=== PATIENT | male | born 1965 ===

== ENCOUNTER 2017-02-02 18:30 | Inpatient (IN) | payer BC, OTHER ==
[~2017-02-02] VITALS: Ht 180.3 cm; Wt 96.2 kg
[2017-02-02] MEDS ORDERED: THIAMINE HCL 200 MG/2 ML VIAL IM ONE (21:00)
[2017-02-02] MEDS ORDERED: LOPERAMIDE HCL 2 MG CAPSULE PO PRN ×2 (21:00)
[2017-02-02] MEDS ORDERED: IBUPROFEN 400 MG TABLET PO PRN (21:00)
[2017-02-02] MEDS ORDERED: LORAZEPAM 2 MG/1 ML VIAL IM PRN (21:00)
[2017-02-02] MEDS ORDERED: diphenhydrAMINE 50 MG CAPSULE PO PRN (21:00)
[2017-02-02] MEDS ORDERED: DICYCLOMINE HCL 20 MG TABLET PO PRN (21:00)
[2017-02-02] MEDS ORDERED: MAGNESIUM HYDROXIDE 30 ML LIQUID UDC PO PRN (21:00)
[2017-02-02] MEDS ORDERED: ONDANSETRON ODT 4 MG TAB.RAPDIS SL PRN (21:00)
[2017-02-02] MEDS ORDERED: HYDROXYZINE PAMOATE 25 MG CAPSULE PO PRN (21:00)
[2017-02-02] MEDS ORDERED: MIRALAX 17 GM POWD.PACK PO PRN (21:00)
[2017-02-02] MEDS ORDERED: ACETAMINOPHEN 325 MG TABLET PO PRN (21:00)
[2017-02-02] MEDS ORDERED: ONDANSETRON 4 MG/2 ML VIAL IM PRN (21:00)
[2017-02-02] MEDS ORDERED: MAG HYDROX/AL HYDROX/SIMETH 30 ML LIQUID UDC PO PRN (21:00)
[2017-02-02] MEDS ORDERED: LORAZEPAM 1 MG TABLET PO PRN ×2 (21:00)
[2017-02-02] MEDS ORDERED: CLONIDINE HCL 0.1 MG TABLET PO PRN (21:00)
[2017-02-02 21:26] LABS: *AMPHETAMINE, URINE NEGATIVE (NEGATIVE); *BARBITURATE, URINE NEGATIVE (NEGATIVE); *CANNABINOID, URINE NEGATIVE (NEGATIVE); *COCCAINE, URINE NEGATIVE (NEGATIVE); *OPIATE, URINE NEGATIVE (NEGATIVE); *PHENCYCLIDINE SCREEN,URINE NEGATIVE (NEGATIVE)
[2017-02-02 21:55] VITALS: BP 143/81
[2017-02-02] MEDS ORDERED: LORAZEPAM 1 MG TABLET PO ONE (22:00)
[2017-02-02] MEDS ORDERED: LORAZEPAM 1 MG TABLET ONE (22:05)
[2017-02-02 23:34] LABS: BASOPHILS % (AUTO) 0.7 % (0.0-2.0); EOSINOPHILS % (AUTO) 0.8 % (0.0-7.0); HEMATOCRIT 43.5 % (36.7-47.1); HEMOGLOBIN 14.8 g/dL (12.5-16.3); LYMPHOCYTES % (AUTO) 21.7 % (20.5-51.5); MEAN CORPUSCULAR HEMOGLOBIN 30.6 uug (23.8-33.4); MEAN CORPUSCULAR HGB CONC 34 g/dL (32.5-36.3); MEAN CORPUSCULAR VOLUME 89.8 fL (73.0-96.2); MONOCYTES # (AUTO) 0.4 K/uL (2.0-10.0); MONOCYTES % (AUTO) 7.9 % (0.0-11.0); NEUTROPHILS # (AUTO) 3.2 K/uL (1.8-8.9); NEUTROPHILS % (AUTO) 68.9 % (38.5-71.5); PLATELET COUNT (AUTO) 184 K/uL (152-348); RED BLOOD CELL COUNT(AUTO) 4.84 MIL/uL (4.06-5.63); RED CELL DISTRIBUTION WIDTH 14.4 % (12.1-16.2); WHITE BLOOD COUNT (AUTO) 4.6 K/uL (3.6-10.2)
[2017-02-02 23:47] LABS: ALBUMIN 4.4 g/dL (3.4-5.0); BILIRUBIN,TOTAL 0.3 mg/dL (0.2-1.0); CALCIUM 9.1 mg/dL (8.5-10.1); CREATININE 0.9 mg/dL (0.6-1.3); POTASSIUM 3.4 mmol/L (3.5-5.1); TOTAL PROTEIN, SERUM 8.4 g/dL (6.4-8.2)
[2017-02-02 23:57] LABS: HIV-1 p24 ANTIGEN NON REACTIVE (NONREACTIVE); HIV-1/2 ANTIBODY NON REACTIVE (NONREACTIVE)
[2017-02-02 23:58] LABS: THYROID STIMULATING HORMONE 2.504 mIU/mL (0.358-3.740)
[2017-02-03] VITALS: BP 124/81
[2017-02-03] MEDS ORDERED: LORA-259 PO (02:40)
[2017-02-03 04:00] VITALS: BP 127/86
[2017-02-03] MEDS ORDERED: POTASSIUM CHLORIDE 20 MEQ TAB.PRT.SR PO ONE (06:00)
[2017-02-03] MEDS ORDERED: LORAZEPAM 1 MG TABLET ONE (06:22)
[2017-02-03 08:00] VITALS: BP 133/83
[2017-02-03] MEDS: MULTIVITAMINS,THERAPEUTIC TABLET PO SCH (08:43)
[2017-02-03] MEDS: LORAZEPAM 1 MG TABLET PO SCH ×4 (08:43→20:42)
[2017-02-03] MEDS: FOLIC ACID 1 MG TABLET PO SCH (08:43)
[2017-02-03] MEDS: THIAMINE HCL 100 MG TABLET PO SCH (08:43)
[2017-02-03] MEDS ORDERED: TUBERCULIN,PURIF.PROT.DERIV. 5 TU/0.1 ML TEST ID ONE (09:00)
[2017-02-03 12:00] VITALS: BP 115/62
[2017-02-03 16:00] VITALS: BP 121/80
[2017-02-03 20:00] VITALS: BP 114/74
[2017-02-04] VITALS: BP 110/77
[2017-02-04 04:00] VITALS: BP 118/77
[2017-02-04 07:54] LABS: BASOPHILS % (AUTO) 1.1 % (0.0-2.0); EOSINOPHILS # (AUTO) 0.1 K/uL (0.0-0.7); EOSINOPHILS % (AUTO) 2.3 % (0.0-7.0); HEMATOCRIT 45.7 % (36.7-47.1); HEMOGLOBIN 15.2 g/dL (12.5-16.3); LYMPHOCYTES # (AUTO) 1.2 K/uL (20.0-40.0); LYMPHOCYTES % (AUTO) 31.6 % (20.5-51.5); MEAN CORPUSCULAR HEMOGLOBIN 30.1 uug (23.8-33.4); MEAN CORPUSCULAR HGB CONC 33 g/dL (32.5-36.3); MEAN CORPUSCULAR VOLUME 90.6 fL (73.0-96.2); MONOCYTES # (AUTO) 0.5 K/uL (2.0-10.0); MONOCYTES % (AUTO) 12.9 % (0.0-11.0); NEUTROPHILS # (AUTO) 1.9 K/uL (1.8-8.9); NEUTROPHILS % (AUTO) 52.1 % (38.5-71.5); PLATELET COUNT (AUTO) 193 K/uL (152-348); RED BLOOD CELL COUNT(AUTO) 5.04 MIL/uL (4.06-5.63); RED CELL DISTRIBUTION WIDTH 14.2 % (12.1-16.2); WHITE BLOOD COUNT (AUTO) 3.7 K/uL (3.6-10.2)
[2017-02-04 08:00] VITALS: BP 110/85
[2017-02-04 08:20] LABS: ALBUMIN 4.4 g/dL (3.4-5.0); BILIRUBIN,DIRECT 0.2 mg/dL (0.0-0.2); BILIRUBIN,TOTAL 0.7 mg/dL (0.2-1.0); CALCIUM 9.4 mg/dL (8.5-10.1); CREATININE 0.9 mg/dL (0.6-1.3); MAGNESIUM 2.2 mg/dL (1.8-2.4); PHOSPHOROUS 4.2 mg/dL (2.5-4.9); POTASSIUM 4.1 mmol/L (3.5-5.1); TOTAL PROTEIN, SERUM 8.3 g/dL (6.4-8.2)
[2017-02-04] MEDS: LORAZEPAM 1 MG TABLET PO SCH ×3 (08:28→21:47)
[2017-02-04] MEDS: THIAMINE HCL 100 MG TABLET PO SCH (08:28)
[2017-02-04] MEDS: FOLIC ACID 1 MG TABLET PO SCH (08:28)
[2017-02-04] MEDS: MULTIVITAMINS,THERAPEUTIC TABLET PO SCH (08:28)
[2017-02-04 12:00] VITALS: BP 118/82
[2017-02-04 14:13] LABS: HCV AB <0.1 s/co ratio (0.0-0.9); HEPATITIS B CORE AB, IgM Negative (Negative); HEPATITIS B SURFACE AG Negative (Negative)
[2017-02-04 16:00] VITALS: BP 111/79
[2017-02-04 20:00] VITALS: BP 117/85
[2017-02-04] MEDS: GABAPENTIN 300 MG CAPSULE PO SCH (21:47)
[2017-02-05] VITALS: BP 111/73
[2017-02-05 04:00] VITALS: BP 112/74
[2017-02-05 08:00] VITALS: BP 125/68
[2017-02-05] MEDS: THIAMINE HCL 100 MG TABLET PO SCH (09:22)
[2017-02-05] MEDS: FOLIC ACID 1 MG TABLET PO SCH (09:22)
[2017-02-05] MEDS: GABAPENTIN 300 MG CAPSULE PO SCH ×2 (09:22→21:47)
[2017-02-05] MEDS: MULTIVITAMINS,THERAPEUTIC TABLET PO SCH (09:22)
[2017-02-05] MEDS: LORAZEPAM 1 MG TABLET PO SCH ×4 (09:23→21:46)
[2017-02-05 12:00] VITALS: BP 112/72
[2017-02-05 16:00] VITALS: BP 129/63
[2017-02-05 20:00] VITALS: BP 117/61
[2017-02-06 08:00] VITALS: BP 110/56
[2017-02-06] MEDS: GABAPENTIN 300 MG CAPSULE PO SCH ×2 (08:09→14:02)
[2017-02-06] MEDS: THIAMINE HCL 100 MG TABLET PO SCH (08:09)
[2017-02-06] MEDS: LORAZEPAM 1 MG TABLET PO SCH ×3 (08:09→21:24)
[2017-02-06] MEDS: MULTIVITAMINS,THERAPEUTIC TABLET PO SCH (08:09)
[2017-02-06] MEDS: FOLIC ACID 1 MG TABLET PO SCH (08:09)
[2017-02-06] MEDS: CHOLECALCIFEROL 1,000 UNIT TABLET PO SCH (08:09)
[2017-02-06 12:00] VITALS: BP 119/82
[2017-02-06 16:00] VITALS: BP 142/88
[2017-02-06 20:00] VITALS: BP 128/69
[2017-02-06] MEDS ORDERED: GABAPENTIN 300 MG CAPSULE PO SCH (21:00)
[2017-02-06] MEDS ORDERED: GABAPENTIN 300 MG CAPSULE ONE (21:30)
[2017-02-07] VITALS: BP 155/88
[2017-02-07 08:00] VITALS: BP 122/73
[2017-02-07] MEDS: LORAZEPAM 1 MG TABLET PO SCH ×2 (08:59→21:29)
[2017-02-07] MEDS: MULTIVITAMINS,THERAPEUTIC TABLET PO SCH (08:59)
[2017-02-07] MEDS: THIAMINE HCL 100 MG TABLET PO SCH (08:59)
[2017-02-07] MEDS: FOLIC ACID 1 MG TABLET PO SCH (08:59)
[2017-02-07] MEDS: CHOLECALCIFEROL 1,000 UNIT TABLET PO SCH (08:59)
[2017-02-07] MEDS ORDERED: GABAPENTIN 300 MG CAPSULE PO SCH ×2 (09:00→21:00)
[2017-02-07 12:00] VITALS: BP 125/85
[2017-02-07] MEDS: GABAPENTIN 300 MG CAPSULE PO SCH ×2 (15:12→21:29)
[2017-02-07] MEDS: DOCUSATE SODIUM 250 MG CAPSULE PO SCH (15:14)
[2017-02-07 16:00] VITALS: BP 116/79
[2017-02-07 20:00] VITALS: BP 111/78
[2017-02-08 08:00] VITALS: BP 125/69
[2017-02-08] MEDS: CHOLECALCIFEROL 1,000 UNIT TABLET PO SCH (08:58)
[2017-02-08] MEDS: DOCUSATE SODIUM 250 MG CAPSULE PO SCH (08:58)
[2017-02-08] MEDS: MULTIVITAMINS,THERAPEUTIC TABLET PO SCH (08:58)
[2017-02-08] MEDS: GABAPENTIN 300 MG CAPSULE PO SCH ×3 (08:58→21:13)
[2017-02-08] MEDS: FOLIC ACID 1 MG TABLET PO SCH (08:58)
[2017-02-08] MEDS: THIAMINE HCL 100 MG TABLET PO SCH (08:58)
[2017-02-08 12:00] VITALS: BP 122/87
[2017-02-08 12:55] LABS: *AMPHETAMINE, URINE NEGATIVE (NEGATIVE); *BARBITURATE, URINE NEGATIVE (NEGATIVE); *CANNABINOID, URINE NEGATIVE (NEGATIVE); *COCCAINE, URINE NEGATIVE (NEGATIVE); *OPIATE, URINE NEGATIVE (NEGATIVE); *PHENCYCLIDINE SCREEN,URINE NEGATIVE (NEGATIVE)
[2017-02-08] MEDS ORDERED: MAGNESIUM CITRATE 296 ML BOTTLE PO PRN (15:30)
[2017-02-08] MEDS ORDERED: BISACODYL 10 MG SUPP.RECT RC PRN (15:30)
[2017-02-08] MEDS ORDERED: BISACODYL 5 MG TABLET.DR PO PRN (15:30)
[2017-02-08] MEDS ORDERED: FLEET ENEMA 133 ML BOTTLE RC PRN (15:30)
[2017-02-08 16:00] VITALS: BP 138/78
[2017-02-08] MEDS ORDERED: HYDR-3895 PO (19:57)
[2017-02-08] MEDS ORDERED: DIPH50CA37 PO (19:57)
[2017-02-08] MEDS ORDERED: Gabapentin PO (19:57)
[2017-02-08] MEDS ORDERED: Docusate Sodium PO (19:57)
[2017-02-08] MEDS ORDERED: CHOL10002 PO (19:57)
[2017-02-08 20:00] VITALS: BP 125/87
[2017-02-09 08:18] VITALS: BP 136/90
[2017-02-09] MEDS: CHOLECALCIFEROL 1,000 UNIT TABLET PO SCH (08:34)
[2017-02-09] MEDS: MULTIVITAMINS,THERAPEUTIC TABLET PO SCH (08:34)
[2017-02-09] MEDS: THIAMINE HCL 100 MG TABLET PO SCH (08:35)
[2017-02-09] MEDS: FOLIC ACID 1 MG TABLET PO SCH (08:35)
[2017-02-09] MEDS: GABAPENTIN 300 MG CAPSULE PO SCH (08:35)
[2017-02-09] MEDS: DOCUSATE SODIUM 250 MG CAPSULE PO SCH (08:35)
== END 2017-02-09 09:31 | disposition other institution (70) | DRG 895 ==
LOC: SRC 20:25
PROVIDERS: ADMIT Internal Medicine; ATTEND Internal Medicine
DX: F10.230 Alcohol dependence with withdrawal, uncomplicated (principal); F33.2 Major depressive disorder, recurrent severe without psychotic features; K70.10 Alcoholic hepatitis without ascites; Y90.4 Blood alcohol level of 80-99 mg/100 ml; F41.9 Anxiety disorder, unspecified; F90.9 Attention-deficit hyperactivity disorder, unspecified type; F14.10 Cocaine abuse, uncomplicated; E83.51 Hypocalcemia; E87.6 Hypokalemia; K59.00 Constipation, unspecified; Z86.19 Personal history of other infectious and parasitic diseases; G62.1 Alcoholic polyneuropathy; E55.9 Vitamin D deficiency, unspecified; F13.10 Sedative, hypnotic or anxiolytic abuse, uncomplicated; R73.9 Hyperglycemia, unspecified; G47.00 Insomnia, unspecified
CPT/HCPCS: 36415; 70030-TC; 80307; 82306; 83690; 83735; 84100; 84443; 85025; 86580; 86592; 86705; 86803; 87340; 87806; G6040-TC; J3411; Q0163